=== PATIENT | female | born 1985 | race Caucasian/White ===

== ENCOUNTER 2016-11-05 15:21 | Emergency (ER) | payer MEDICARE, MEDICAID ==
[~2016-11-05 15:21] MED LIST: /METO5T; ACET65TA; LASI40TA; PRED20TA
[2016-11-05] MEDS ORDERED: MORPHINE 2 MG/ML 1ML SYRINGE As Ordered ONE (17:15)
[2016-11-05 17:23] LABS: BASO % 0.4 % (0.0-1.0); EOS # 0.2 K/mm3 (0.0-0.50); EOS % 1.8 % (0.0-3.0); LARGE UNSTAINED CELL # 0.1 K/mm3 (0.0-0.4); LARGE UNSTAINED CELL % 0.7 % (0.0-4.0); LYMPH # 1.5 K/mm3 (1.5-6.5); LYMPH % 15.9 % (24.0-44.0); MEAN CORPUSCULAR HEMOGLOBIN 29.8 pg (27.0-33.0); MEAN CORPUSCULAR HGB CONC 32.7 g/dl (32.0-36.5); MEAN CORPUSCULAR VOLUME 91.2 fl (80.0-96.0); MONO # 0.3 K/mm3 (0.0-0.8); MONO % 3.1 % (0.0-5.0); NEUTROPHILS # 7.2 K/mm3 (1.8-7.7); PLATELET COUNT, AUTOMATED 254 k/mm3 (150-450); RED CELL DISTRIBUTION WIDTH 14.2 % (11.5-14.5); WHITE BLOOD COUNT 9.2 K/mm3 (4.0-10.0)
[2016-11-05 17:40] LABS: ALBUMIN 3.8 GM/DL (3.2-5.2); ALBUMIN/GLOBULIN RATIO 1.03 (1.00-1.93); BILIRUBIN,DIRECT 0.2 MG/DL (0.0-0.2); BILIRUBIN,TOTAL 1.3 MG/DL (0.2-1.0); CALCIUM LEVEL 8.5 MG/DL (8.5-10.1); CREATININE FOR GFR 12.6 MG/DL (0.55-1.02); GLOMERULAR FILTRATION RATE 3.7 (>60); TOTAL PROTEIN 7.5 GM/DL (6.4-8.2)
--- NOTE | 2016-11-05 17:51 | REP ---
CT abdomen and pelvis without contrast 11/05/2016 Indication: Abdominal pain Comparison: CT abdomen and pelvis 11/28/07 Findings: Lung bases are clear bilaterally. Heart is of upper normal size. Heart is enlarged, 19.8 cm craniocaudal dimension, yet without focal lesions. The spleen is mildly enlarged 13.5 cm craniocaudal dimension. The pancreas is unremarkable. There has been a prior cholecystectomy. Adrenal glands are normal. The kidneys are diffusely atrophic contains few bilateral cortical calcifications which are nonobstructing. There is no hydronephrosis bilaterally. Stomach is contracted. Small bowel is without obstruction. The appendix is normal abdominal aorta is of normal course and caliber. Bladder is contracted. Uterus is anteflexed and somewhat deviated to the left. The right ovary measures 3.9 x 2.4 cm upper normal range. The left colon is under distended. The transplant kidney within the right iliac fossa does represent interval change when compared with CT of the pelvis 11/28/2007. There is diffusely hydronephrotic right transplant kidney with cortical thinning and large area of fluid attenuation within the renal sinus most compatible with a diffusely hydronephrotic kidney. There are no visualized obstructing ureteral calculi. There is no free air or ascites. Impression 1. 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 This does represent an interval finding when compared with CT pelvis 11/28/2007 at which time there was no transplant kidney. Clinical follow-up recommended. May consider ultrasound of the transplant kidney 2. Diffusely atrophic [place] kidneys with nonobstructing cortical and/or calyceal calcifications. Signed by Viv Obrien MD 11/05/2016 05:44 P
[2016-11-05] MEDS ORDERED: OXYCODONE/APAP 5MG/325MG(BULK) 1 TAB TAB As Ordered ONE (18:06)
--- NOTE | 2016-11-05 18:16 | EDDOCDS ---
Physician Documentation [facility] Name: Renee Ambrocio Age: 31 yrs Sex: Female : 1985 Arrival Date: 11/05/2016 Time: 15:21 Bed TR8 Private MD: NO PRIMARY PHYSICIAN, . Disposition: 11/05/16 18:05 Discharged to Home/Self Care. Impression: Abdominal and pelvic pain - RLQ, Nausea and vomiting. - Condition is Stable. - Discharge Instructions: Abdominal Pain, Adult, Nausea and Vomiting. - Prescriptions for ZOFRAN ODT 4 mg - dissolve 1 tablet by ORAL route 4 times per day As needed do not chew, do not swallow whole; 10 tablet. - Medication Reconciliation, Local Pharmacy Hours form. - Follow up: Emergency Department; When: As needed; Reason: Worsening of conditions. Follow up: [facility] Delga[facility]; When: Call to arrange an appointment; Reason: Wound/Symptom Recheck, Recheck today's complaints, Worsening of conditions, Continuance of care. - Problem is an ongoing problem. - Symptoms have improved. Historical: - Allergies: Pertussis Vaccines; - Home Meds: 1. carvedilol 25 mg oral tab 1 tab every 12 hours (Last dose: 11/05/2016 14:00) 2. Nifedical XL 60 mg oral tr24 1 tab twice a day (Last dose: 11/05/2016 14:00) 3. omeprazole 20 mg Oral cpDR 1 cap 2 times per day (Last dose: 11/05/2016 14:00) 4. Sensipar 60 mg oral tab 1 tab nightly (Last dose: 11/04/2016) 5. Vitamin D Oral 50,000 unit weekly (Last dose: 11/01/2016) - PMHx: Renal Failure with Dialysis; Hypertension; - PSHx: Kidney Transplant- Right; Cholecystectomy; Fistula placement; - Social history: Smoking status: Patient uses tobacco products, current every day smoker. No barriers to communication noted, The patient speaks fluent Czech, Speaks appropriately for age. - Family history: Not pertinent. - : The pt / caregiver states he / she is not on anticoagulants. Home medication list is obtained from pill bottles. - Exposure Risk Screening:: None identified. 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 6 in. (167.64 cm) (R); 16:24 BP 188 / 110 LA Sitting (man/reg); ct3 18:08 BP 180 / 104; Pulse 67; Resp 18; Temp 98.3(TE); Pulse Ox 99% on R/A; Pain 7/10; dem1 15:23 Body Mass Index 32.93 (92.53 kg, 167.64 cm) dd6 MDM: 16:53 Undress patient appropriately for examination ordered. cc10 16:53 Basic Metabolic Profile Ordered. EDMS 16:53 CBC with Diff Ordered. EDMS 16:53 Lipase Ordered. EDMS 16:53 Liver Profile Ordered. EDMS 16:54 morphine 2 mg IVP once ordered. cc10 16:54 CT ABD & PELVIS: No Contrast Ordered. EDMS 16:55 NOTHING BY MOUTH+DIET ordered. EDMS 16:57 IV Saline Lock ordered. cc10 17:46 Basic Metabolic Profile Reviewed. cc10 17:46 CBC with Diff Reviewed. cc10 17:46 Lipase Reviewed. cc10 17:46 Liver Profile Reviewed. cc10 17:47 Financial registration complete. zo 17:48 [facility] [place] was scanned into [employer] and attached to record. zo 18:04 oxyCODONE-acetaminophen 4 pack 5 mg-325 mg 1 packets PO once; Dispense with pt, take as cc10 per instruction on package ordered. Administered Medications: 17:18 Drug: morphine 2 mg [morphine 2 mg/mL intravenous cartridge (1 mL)] Route: IVP; Site: [facility] left hand; 18:09 Drug: oxyCODONE-acetaminophen 4 pack 1 packets [oxycodone-acetaminophen 5 mg-325 mg morenita tablet (1 tabs)] {Co-Signature: marianela (Price Desai RN).} Route: PO; Signatures: Dispatcher MedHost EDMS Louie Francis RN RN jmk Olin, Zoeann zo Dickerson, Laura, RN RN ld5 Price Desai RN RN jmb Coniski, Colin PA-C PA-C cc10 Price Desai RN jmb The chart was reviewed and I authenticate all verbal orders and agree with the evaluation and treatment provided.Attachments: 17:48 [facility] [place] Agreement zo MTDD
--- NOTE | 2016-11-05 18:16 | EDDOCDS ---
Nurse's Notes [facility] Name: Renee Ambrocio Age: 31 yrs Sex: Female : 1985 Arrival Date: 11/05/2016 Time: 15:21 Bed TR8 Private MD: NO PRIMARY PHYSICIAN, . Diagnosis: Abdominal and pelvic pain-RLQ;Nausea and vomiting Presentation: 11/05 15:38 Presenting complaint: Patient states: Pain to RLQ starting yesterday. + nausea, ld5 vomiting. History of right kidney transplant. Adult Sepsis Screening: The patient does not have new or worsening altered mentation. Patient's respiratory rate is less than 22. Systolic blood pressure is greater than 100. Patient has a qSOFA score of 0- Negative Sepsis Screen. Suicide/Homicide risk assessment- the patient denies having any suicidal and/or homicidal ideations and does not present with any other emotional, behavioral or mental health complaints. 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 Transition of care: patient was not received from another setting of care. 15:38 Acuity: JESUS Level 3 ld5 15:38 Method Of Arrival: Walkin/Carried/Asstd ld5 Triage Assessment: 15:42 General: Appears in no apparent distress. Pain: Location: right lower quadrant Pain ld5 currently is 8 out of 10 on a pain scale. Quality of pain is described as dull, Is continuous. HIV screening NA for this visit Offered previously. Neurological: Level of Consciousness is awake, alert. GI: Reports nausea, vomiting. : Reports does not produce urine. 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 carvedilol 25 mg oral tab 1 tab every 12 hours (Last dose: 11/05/2016 14:00) 2. Nifedical XL 60 mg oral tr24 1 tab twice a day (Last dose: 11/05/2016 14:00) 3. omeprazole 20 mg Oral cpDR 1 cap 2 times per day (Last dose: 11/05/2016 14:00) 4. Sensipar 60 mg oral tab 1 tab nightly (Last dose: 11/04/2016) 5. Vitamin D Oral 50,000 unit weekly (Last dose: 11/01/2016) - PMHx: Renal Failure with Dialysis; Hypertension; - PSHx: Kidney Transplant- Right; Cholecystectomy; Fistula placement; - Social history: Smoking status: Patient uses tobacco products, current every day smoker. No barriers to communication noted, The patient speaks fluent Tajik, Speaks appropriately for age. - Family history: Not pertinent. - : The pt / caregiver states he / she is not on anticoagulants. Home medication list is obtained from pill bottles. - Exposure Risk Screening:: None identified. Screenin:12 Screening information is obtained from the patient. Fall risk: No risks identified. jmb Assistance ADL's: requires no assistance with activities of daily living. Abuse/DV Screen: The patient / caregiver reports he/she is: not in a situation that causes fear, pain or injury. Nutritional screening: No deficits noted. home support is adequate. Assessment: 17:12 General: Appears in no apparent distress, Behavior is appropriate for age, cooperative. jmb Pain: Location: abdomen and right lower quadrant. Pain: Pain currently is 8 out of 10 on a pain scale. Neurological: Level of Consciousness is awake, alert, obeys commands, Oriented to person, place, time, Replenishment Merchandising Associate are equal bilaterally Speech is normal, Facial symmetry appears normal, Facial symmetry: tongue is midline. Cardiovascular: Capillary refill < 3 seconds Heart tones present Pulses are all present. Rhythm is regular. Respiratory: Airway is patent Respiratory effort is even, unlabored, Respiratory pattern is regular, symmetrical, Breath sounds are clear bilaterally. GI: Abdomen is non- distended Bowel sounds present X 4 quads. Abd is soft X 4 quads. Derm: Skin is pink, warm & dry. Musculoskeletal: Range of motion intact in all extremities. 17:48 General: Appears in no apparent distress, comfortable, Behavior is appropriate for age, jmb cooperative. Neurological: Level of Consciousness is awake, alert, obeys commands, Oriented to person, place, time, Speech is normal. Respiratory: Airway is patent Respiratory effort is even, unlabored, Respiratory pattern is regular, symmetrical. Vital Signs: 15:23 BP 231 / 155; Pulse 81; Resp 18 S; Temp 98.3(O); Pulse Ox 99% on R/A; Weight 92.53 kg dd6 (R); Height 5 ft. 6 in. (167.64 cm) (R); 16:24 BP 188 / 110 LA Sitting (man/reg); ct3 18:08 BP 180 / 104; Pulse 67; Resp 18; Temp 98.3(TE); Pulse Ox 99% on R/A; Pain 7/10; dem1 15:23 Body Mass Index 32.93 (92.53 kg, 167.64 cm) dd6 Vitals: 15:23 Log In Time: November 05, 2016 at 15:20. dd6 ED Course: 15:22 Patient visited by Alphonse Alcazar PCA. dd6 15:22 NO PRIMARY PHYSICIAN, . is Private Physician. dd6 15:22 Patient moved to Waiting dd6 15:24 Patient moved to Pre RCE dd6 15:39 Triage Initiated ld5 15:43 Patient visited by Angela Lerma,ALEXIA. ld5 16:18 Patient moved to I4 / M4 ct3 16:21 Patient moved to Triage 3 ld5 16:26 Patient visited by Erica Reese PCA. ct3 16:33 Patient moved to Pre RCE ct3 16:47 Patient moved to Triage 3 ct3 16:48 Floyd Navarrete PA-C is PHCP. cc10 16:48 Rg Ayala MD is Attending Physician. cc10 16:48 Patient visited by Floyd Navarrete PA-C. cc10 16:48 Patient visited by Floyd Navarrete PA-C. cc10 16:51 Patient moved to I4 / M4 ct3 17:12 The patient / caregiver is instructed regarding the plan of care and ED course. jmb 17:12 Basic Metabolic Profile Sent. jmb 17:12 CBC with Diff Sent. jmb 17:12 Lipase Sent. jmb 17:12 Liver Profile Sent. jmb 17:12 Inserted saline lock: 20 gauge in left hand and blood collected. The patient tolerated jmb the procedure well. Labs drawn. (by ED staff). Sent per order to lab. 17:14 Patient visited by Price Desai RN. jmb 17:48 [place] [place] into [employer] and attached to record. zo 17:49 Patient visited by Price Desai,ALEXIA. jmb 18:04 Chang Delgado is Referral Physician. cc10 18:09 Patient visited by Deandre Lauren. dem1 18:13 Discontinued lock intact, bleeding controlled, pressure dressing applied, No jmk redness/swelling at site. No procedures done that require assistance. 18:15 Patient moved to 8 [facility] Administered Medications: 17:18 Drug: morphine 2 mg [morphine 2 mg/mL intravenous cartridge (1 mL)] Route: IVP; Site: b left hand; 18:09 Drug: oxyCODONE-acetaminophen 4 pack 1 packets [oxycodone-acetaminophen 5 mg-325 mg jmk tablet (1 tabs)] {Co-Signature: marianela (Price Desia RN).} Route: PO; Order Results: Lab Order: Basic Metabolic Profile; SPEC'M 11/05/16 17:08 Test: GLUCOSE, FASTING; Value: 88; Range: 70-105; Units: MG/DL; Status: F Test: BLOOD UREA NITROGEN; Value: 43; Range: 7-18; Abnormal: Above high normal; Units: MG/DL; Status: F Test: CREATININE FOR GFR; Value: 12.60; Range: 0.55-1.02; Abnormal: Above high normal; Units: MG/DL; Status: F Test: GLOMERULAR FILTRATION RATE; Value: 3.7; Range: >60; Abnormal: Below low normal; Status: F Test: SODIUM LEVEL; Value: 143; Range: 136-145; Units: MEQ/L; Status: F Test: POTASSIUM SERUM; Value: 5.0; Range: 3.5-5.1; Units: MEQ/L; Status: F Test: CHLORIDE LEVEL; Value: 103; Range: 98-107; Units: MEQ/L; Status: F Test: CARBON DIOXIDE LEVEL; Value: 28; Range: 21-32; Units: MEQ/L; Status: F Test: ANION GAP; Value: 12; Range: 8-16; Units: MEQ/L; Status: F Test: CALCIUM LEVEL; Value: 8.5; Range: 8.5-10.1; Units: MG/DL; Status: F Test Note: ; Units are mL/min/1.73 m2 Chronic Kidney Disease Staging per NKF: Stage I & II GFR >=60 Normal to Mildly Decreased Stage III GFR 30-59 Moderately Decreased Stage IV GFR 15-29 Severely Decreased Stage V GFR <15 Very Little GFR Left ESRD GFR <15 on WINDOWS SERVER ADMINISTRATOR Lab Order: CBC with Diff; SPEC'M 11/05/16 17:08 Test: WHITE BLOOD COUNT; Value: 9.2; Range: 4.0-10.0; Units: K/mm3; Status: F Test: RED BLOOD COUNT; Value: 5.30; Range: 4.00-5.40; Units: M/mm3; Status: F Test: HEMOGLOBIN; Value: 15.8; Range: 12.0-16.0; Units: g/dl; Status: F Test: HEMATOCRIT; Value: 48.4; Range: 36.0-47.0; Abnormal: Above high normal; Units: %; Status: F Test: MEAN CORPUSCULAR VOLUME; Value: 91.2; Range: 80.0-96.0; Units: fl; Status: F Test: MEAN CORPUSCULAR HEMOGLOBIN; Value: 29.8; Range: 27.0-33.0; Units: pg; Status: F Test: MEAN CORPUSCULAR HGB CONC; Value: 32.7; Range: 32.0-36.5; Units: g/dl; Status: F Test: RED CELL DISTRIBUTION WIDTH; Value: 14.2; Range: 11.5-14.5; Units: %; Status: F Test: PLATELET COUNT, AUTOMATED; Value: 254; Range: 150-450; Units: k/mm3; Status: F Test: NEUTROPHILS %; Value: 78.0; Range: 36.0-66.0; Abnormal: Above high normal; Units: %; Status: F Test: LYMPH %; Value: 15.9; Range: 24.0-44.0; Abnormal: Below low normal; Units: %; Status: F Test: MONO %; Value: 3.1; Range: 0.0-5.0; Units: %; Status: F Test: EOS %; Value: 1.8; Range: 0.0-3.0; Units: %; Status: F Test: BASO %; Value: 0.4; Range: 0.0-1.0; Units: %; Status: F Test: LARGE UNSTAINED CELL %; Value: 0.7; Range: 0.0-4.0; Units: %; Status: F Test: NEUTROPHILS #; Value: 7.2; Range: 1.8-7.7; Units: K/mm3; Status: F Test: LYMPH #; Value: 1.5; Range: 1.5-6.5; Units: K/mm3; Status: F Test: MONO #; Value: 0.3; Range: 0.0-0.8; Units: K/mm3; Status: F Test: EOS #; Value: 0.2; Range: 0.0-0.50; Units: K/mm3; Status: F Test: BASO #; Value: 0.0; Range: 0.0-0.2; Units: K/mm3; Status: F Test: LARGE UNSTAINED CELL #; Value: 0.1; Range: 0.0-0.4; Units: K/mm3; Status: F Lab Order: Lipase; SPEC'M 11/05/16 17:08 Test: LIPASE; Value: 460; Range: 73-393; Abnormal: Above high normal; Units: U/L; Status: F Lab Order: Liver Profile; SPEC'M 11/05/16 17:08 Test: AST/SGOT; Value: 6; Range: 15-37; Abnormal: Below low normal; Units: U/L; Status: F Test: ALT/SGPT; Value: 12; Range: 12-78; Units: U/L; Status: F Test: ALKALINE PHOSPHATASE; Value: 153; Range: 45-117; Abnormal: Above high normal; Units: U/L; Status: F Test: BILIRUBIN,TOTAL; Value: 1.3; Range: 0.2-1.0; Abnormal: Above high normal; Units: MG/DL; Status: F Test: BILIRUBIN,DIRECT; Value: 0.2; Range: 0.0-0.2; Units: MG/DL; Status: F Test: TOTAL PROTEIN; Value: 7.5; Range: 6.4-8.2; Units: GM/DL; Status: F Test: ALBUMIN; Value: 3.8; Range: 3.2-5.2; Units: GM/DL; Status: F Test: ALBUMIN/GLOBULIN RATIO; Value: 1.03; Range: 1.00-1.93; Status: F Outcome: 18:05 Discharge ordered by Provider. cc10 18:13 Discharge Assessment: Patient awake, alert and oriented x 3. No cognitive and/or jmk functional deficits noted. Patient verbalized understanding of disposition instructions. patient administered narcotics - no. The following High Risk Discharge criteria are identified: None. Discharged to home ambulatory. Condition: good. Discharge instructions given to patient, Instructed on discharge instructions, follow up and referral plans. medication usage, Demonstrated understanding of instructions, medications, Pt was receptive of discharge instructions/ teaching. Prescriptions given X 1. No special radiology studies were completed. Property :Personal belongings accompany Pt. 18:15 Patient left the ED. morenita Signatures: Louie Francis,RN RN Gisel Steward Daniell, PARTS PICKER PARTS PICKER dd6 Angela Lerma RN RN ld5 Erica Reese, PARTS PICKER PARTS PICKER ct3 Deandre Lauren Joshua,RN RN Floyd Jamil, PA-C PA-C cc10 Price bear ALANISD
--- NOTE | 2016-11-07 19:17 | EDDOCDS ---
Physician Documentation [facility] Name: Renee Ambrocio Age: 31 yrs Sex: Female : 1985 Arrival Date: 11/05/2016 Time: 15:21 Bed TR8 Private MD: NO PRIMARY PHYSICIAN, . Disposition: 11/05/16 18:05 Discharged to Home/Self Care. Impression: Abdominal and pelvic pain - RLQ, Nausea and vomiting. - Condition is Stable. - Discharge Instructions: Abdominal Pain, Adult, Nausea and Vomiting. - Prescriptions for ZOFRAN ODT 4 mg - dissolve 1 tablet by ORAL route 4 times per day As needed do not chew, do not swallow whole; 10 tablet. - Medication Reconciliation, Local Pharmacy Hours form. - Follow up: Emergency Department; When: As needed; Reason: Worsening of conditions. Follow up: Chang Delgado; When: Call to arrange an appointment; Reason: Wound/Symptom Recheck, Recheck today's complaints, Worsening of conditions, Continuance of care. - Problem is an ongoing problem. - Symptoms have improved. Historical: - Allergies: Pertussis Vaccines; - Home Meds: 1. carvedilol 25 mg oral tab 1 tab every 12 hours (Last dose: 11/05/2016 14:00) 2. Nifedical XL 60 mg oral tr24 1 tab twice a day (Last dose: 11/05/2016 14:00) 3. omeprazole 20 mg Oral cpDR 1 cap 2 times per day (Last dose: 11/05/2016 14:00) 4. Sensipar 60 mg oral tab 1 tab nightly (Last dose: 11/04/2016) 5. Vitamin D Oral 50,000 unit weekly (Last dose: 11/01/2016) - PMHx: Renal Failure with Dialysis; Hypertension; - PSHx: Kidney Transplant- Right; Cholecystectomy; Fistula placement; - Social history: Smoking status: Patient uses tobacco products, current every day smoker. No barriers to communication noted, The patient speaks fluent Slovak, Speaks appropriately for age. - Family history: Not pertinent. - : The pt / caregiver states he / she is not on anticoagulants. Home medication list is obtained from pill bottles. - Exposure Risk Screening:: None identified. 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 6 in. (167.64 cm) (R); 16:24 BP 188 / 110 LA Sitting (man/reg); ct3 18:08 BP 180 / 104; Pulse 67; Resp 18; Temp 98.3(TE); Pulse Ox 99% on R/A; Pain 7/10; dem1 15:23 Body Mass Index 32.93 (92.53 kg, 167.64 cm) dd6 MDM: 16:53 Undress patient appropriately for examination ordered. cc10 16:53 Basic Metabolic Profile Ordered. EDMS 16:53 CBC with Diff Ordered. EDMS 16:53 Lipase Ordered. EDMS 16:53 Liver Profile Ordered. EDMS 16:54 morphine 2 mg IVP once ordered. cc10 16:54 CT ABD & PELVIS: No Contrast Ordered. EDMS 16:55 NOTHING BY MOUTH+DIET ordered. EDMS 16:57 IV Saline Lock ordered. cc10 17:46 Basic Metabolic Profile Reviewed. cc10 17:46 CBC with Diff Reviewed. cc10 17:46 Lipase Reviewed. cc10 17:46 Liver Profile Reviewed. cc10 17:47 Financial registration complete. zo 17:48 [facility] [place] was scanned into [employer] and attached to record. zo 18:04 oxyCODONE-acetaminophen 4 pack 5 mg-325 mg 1 packets PO once; Dispense with pt, take as cc10 per instruction on package ordered. 11/06 10:04 T-Sheet-- Draft Copy was scanned into [employer] and attached to record. gb Administered Medications: 11/05 17:18 Drug: morphine 2 mg [morphine 2 mg/mL intravenous cartridge (1 mL)] Route: IVP; Site: b left hand; 18:09 Drug: oxyCODONE-acetaminophen 4 pack 1 packets [oxycodone-acetaminophen 5 mg-325 mg morenita tablet (1 tabs)] {Co-Signature: marianela (Price Desai RN).} Route: PO; Signatures: Dispatcher MedHost EDMS Louie Francis,RN RN Karlee Coelho, Reg Reg gb Gisel Pressley Laura,RN RN ld5 Price Desai RN RN jmb Floyd Navarrete PA-C PAJohnnaC cc10 Price Desai RN judyb The chart was reviewed and I authenticate all verbal orders and agree with the evaluation and treatment provided.Attachments: 17:48 [facility] Payment Agreement zo 11/06 10:04 T-Sheet-- Draft Copy gb Chart Complete MTDD
--- NOTE | 2016-11-07 19:17 | EDDOCDS ---
Physician Documentation [facility] Name: Renee Ambrocio Age: 31 yrs Sex: Female : 1985 Arrival Date: 11/05/2016 Time: 15:21 Bed TR8 Private MD: NO PRIMARY PHYSICIAN, . Disposition: 11/05/16 18:05 Discharged to Home/Self Care. Impression: Abdominal and pelvic pain - RLQ, Nausea and vomiting. - Condition is Stable. - Discharge Instructions: Abdominal Pain, Adult, Nausea and Vomiting. - Prescriptions for ZOFRAN ODT 4 mg - dissolve 1 tablet by ORAL route 4 times per day As needed do not chew, do not swallow whole; 10 tablet. - Medication Reconciliation, Local Pharmacy Hours form. - Follow up: Emergency Department; When: As needed; Reason: Worsening of conditions. Follow up: Chang Delgado; When: Call to arrange an appointment; Reason: Wound/Symptom Recheck, Recheck today's complaints, Worsening of conditions, Continuance of care. - Problem is an ongoing problem. - Symptoms have improved. Historical: - Allergies: Pertussis Vaccines; - Home Meds: 1. carvedilol 25 mg oral tab 1 tab every 12 hours (Last dose: 11/05/2016 14:00) 2. Nifedical XL 60 mg oral tr24 1 tab twice a day (Last dose: 11/05/2016 14:00) 3. omeprazole 20 mg Oral cpDR 1 cap 2 times per day (Last dose: 11/05/2016 14:00) 4. Sensipar 60 mg oral tab 1 tab nightly (Last dose: 11/04/2016) 5. Vitamin D Oral 50,000 unit weekly (Last dose: 11/01/2016) - PMHx: Renal Failure with Dialysis; Hypertension; - PSHx: Kidney Transplant- Right; Cholecystectomy; Fistula placement; - Social history: Smoking status: Patient uses tobacco products, current every day smoker. No barriers to communication noted, The patient speaks fluent [place], Speaks appropriately for age. - Family history: Not pertinent. - : The pt / caregiver states he / she is not on anticoagulants. Home medication list is obtained from pill bottles. - Exposure Risk Screening:: None identified. 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 6 in. (167.64 cm) (R); 16:24 BP 188 / 110 LA Sitting (man/reg); ct3 18:08 BP 180 / 104; Pulse 67; Resp 18; Temp 98.3(TE); Pulse Ox 99% on R/A; Pain 7/10; dem1 15:23 Body Mass Index 32.93 (92.53 kg, 167.64 cm) dd6 MDM: 16:53 Undress patient appropriately for examination ordered. cc10 16:53 Basic Metabolic Profile Ordered. EDMS 16:53 CBC with Diff Ordered. EDMS 16:53 Lipase Ordered. EDMS 16:53 Liver Profile Ordered. EDMS 16:54 morphine 2 mg IVP once ordered. cc10 16:54 CT ABD & PELVIS: No Contrast Ordered. EDMS 16:55 NOTHING BY MOUTH+DIET ordered. EDMS 16:57 IV Saline Lock ordered. cc10 17:46 Basic Metabolic Profile Reviewed. cc10 17:46 CBC with Diff Reviewed. cc10 17:46 Lipase Reviewed. cc10 17:46 Liver Profile Reviewed. cc10 17:47 Financial registration complete. zo 17:48 [facility] [place] Agreement was scanned into [employer] and attached to record. zo 18:04 oxyCODONE-acetaminophen 4 pack 5 mg-325 mg 1 packets PO once; Dispense with pt, take as cc10 per instruction on package ordered. 11/06 10:04 T-Sheet-- Draft Copy was scanned into [employer] and attached to record. gb Administered Medications: 11/05 17:18 Drug: morphine 2 mg [morphine 2 mg/mL intravenous cartridge (1 mL)] Route: IVP; Site: b left hand; 18:09 Drug: oxyCODONE-acetaminophen 4 pack 1 packets [oxycodone-acetaminophen 5 mg-325 mg morenita tablet (1 tabs)] {Co-Signature: marianela (Price Desai RN).} Route: PO; Signatures: Dispatcher [employer] EDMS Louie Francis,RN RN Karlee Coelho, Reg Reg gb Gisel Pressley Laura,RN RN ld5 Price Desai RN RN jmb Floyd Navarrete PA-C PAJohnnaC cc10 Price Desai RN judyb The chart was reviewed and I authenticate all verbal orders and agree with the evaluation and treatment provided.Attachments: 17:48 [facility] Payment Agreement zo 11/06 10:04 T-Sheet-- Draft Copy gb Chart Complete MTDD
--- NOTE | 2016-11-07 19:17 | EDDOCDS ---
Nurse's Notes [facility] Name: Renee Ambrocio Age: 31 yrs Sex: Female : 1985 Arrival Date: 11/05/2016 Time: 15:21 Bed TR8 Private MD: NO PRIMARY PHYSICIAN, . Diagnosis: Abdominal and pelvic pain-RLQ;Nausea and vomiting Presentation: 11/05 15:38 Presenting complaint: Patient states: Pain to RLQ starting yesterday. + nausea, ld5 vomiting. History of right kidney transplant. Adult Sepsis Screening: The patient does not have new or worsening altered mentation. Patient's respiratory rate is less than 22. Systolic blood pressure is greater than 100. Patient has a qSOFA score of 0- Negative Sepsis Screen. Suicide/Homicide risk assessment- the patient denies having any suicidal and/or homicidal ideations and does not present with any other emotional, behavioral or mental health complaints. Status: Patient is not a client service professional or dependent. Transition of care: patient was not received from another setting of care. 15:38 Acuity: JESUS Level 3 ld5 15:38 Method Of Arrival: Walkin/Carried/Asstd ld5 Triage Assessment: 15:42 General: Appears in no apparent distress. Pain: Location: right lower quadrant Pain ld5 currently is 8 out of 10 on a pain scale. Quality of pain is described as dull, Is continuous. HIV screening NA for this visit Offered previously. Neurological: Level of Consciousness is awake, alert. GI: Reports nausea, vomiting. : Reports does not produce urine. CONTINUOUS IMPROVEMENT COORDINATOR: 15:42 LMP 09/28/2016 ld5 Historical: - Allergies: Pertussis Vaccines; - Home Meds: 1. carvedilol 25 mg oral tab 1 tab every 12 hours (Last dose: 11/05/2016 14:00) 2. Nifedical XL 60 mg oral tr24 1 tab twice a day (Last dose: 11/05/2016 14:00) 3. omeprazole 20 mg Oral cpDR 1 cap 2 times per day (Last dose: 11/05/2016 14:00) 4. Sensipar 60 mg oral tab 1 tab nightly (Last dose: 11/04/2016) 5. Vitamin D Oral 50,000 unit weekly (Last dose: 11/01/2016) - PMHx: Renal Failure with Dialysis; Hypertension; - PSHx: Kidney Transplant- Right; Cholecystectomy; Fistula placement; - Social history: Smoking status: Patient uses tobacco products, current every day smoker. No barriers to communication noted, The patient speaks fluent Swedish, Speaks appropriately for age. - Family history: Not pertinent. - : The pt / caregiver states he / she is not on anticoagulants. Home medication list is obtained from pill bottles. - Exposure Risk Screening:: None identified. Screenin:12 Screening information is obtained from the patient. Fall risk: No risks identified. jmb Assistance ADL's: requires no assistance with activities of daily living. Abuse/DV Screen: The patient / caregiver reports he/she is: not in a situation that causes fear, pain or injury. Nutritional screening: No deficits noted. home support is adequate. Assessment: 17:12 General: Appears in no apparent distress, Behavior is appropriate for age, cooperative. jmb Pain: Location: abdomen and right lower quadrant. Pain: Pain currently is 8 out of 10 on a pain scale. Neurological: Level of Consciousness is awake, alert, obeys commands, Oriented to person, place, time, Head Rigger are equal bilaterally Speech is normal, Facial symmetry appears normal, Facial symmetry: tongue is midline. Cardiovascular: Capillary refill < 3 seconds Heart tones present Pulses are all present. Rhythm is regular. Respiratory: Airway is patent Respiratory effort is even, unlabored, Respiratory pattern is regular, symmetrical, Breath sounds are clear bilaterally. GI: Abdomen is non- distended Bowel sounds present X 4 quads. Abd is soft X 4 quads. Derm: Skin is pink, warm & dry. Musculoskeletal: Range of motion intact in all extremities. 17:48 General: Appears in no apparent distress, comfortable, Behavior is appropriate for age, jmb cooperative. Neurological: Level of Consciousness is awake, alert, obeys commands, Oriented to person, place, time, Speech is normal. Respiratory: Airway is patent Respiratory effort is even, unlabored, Respiratory pattern is regular, symmetrical. Vital Signs: 15:23 BP 231 / 155; Pulse 81; Resp 18 S; Temp 98.3(O); Pulse Ox 99% on R/A; Weight 92.53 kg dd6 (R); Height 5 ft. 6 in. (167.64 cm) (R); 16:24 BP 188 / 110 LA Sitting (man/reg); ct3 18:08 BP 180 / 104; Pulse 67; Resp 18; Temp 98.3(TE); Pulse Ox 99% on R/A; Pain 7/10; dem1 15:23 Body Mass Index 32.93 (92.53 kg, 167.64 cm) dd6 Vitals: 15:23 Log In Time: November 05, 2016 at 15:20. dd6 ED Course: 15:22 Patient visited by Alphonse Alcazar PCA. dd6 15:22 NO PRIMARY PHYSICIAN, . is Private Physician. dd6 15:22 Patient moved to Waiting dd6 15:24 Patient moved to Pre RCE dd6 15:39 Triage Initiated ld5 15:43 Patient visited by Angela Lerma,ALEXIA. ld5 16:18 Patient moved to I4 / M4 ct3 16:21 Patient moved to Triage 3 ld5 16:26 Patient visited by Erica Reese PCA. ct3 16:33 Patient moved to Pre RCE ct3 16:47 Patient moved to Triage 3 ct3 16:48 Floyd Navarrete PA-C is PHCP. cc10 16:48 Rg Ayala MD is Attending Physician. cc10 16:48 Patient visited by Floyd Navarrete PA-C. cc10 16:48 Patient visited by Floyd Navarrete PA-C. cc10 16:51 Patient moved to I4 / M4 ct3 17:12 The patient / caregiver is instructed regarding the plan of care and ED course. jmb 17:12 Basic Metabolic Profile Sent. jmb 17:12 CBC with Diff Sent. jmb 17:12 Lipase Sent. jmb 17:12 Liver Profile Sent. jmb 17:12 Inserted saline lock: 20 gauge in left hand and blood collected. The patient tolerated jmb the procedure well. Labs drawn. (by ED staff). Sent per order to lab. 17:14 Patient visited by Price Desai RN. jmb 17:48 [facility] [place] was [place] into [employer] and attached to record. zo 17:49 Patient visited by Price Desai,ALEXIA. jmb 18:04 Chang Delgado is Referral Physician. cc10 18:09 Patient visited by Deandre Lauren. dem1 18:13 Discontinued lock intact, bleeding controlled, pressure dressing applied, No jmk redness/swelling at site. No procedures done that require assistance. 18:15 Patient moved to TR8 dem1 18:21 CT ABD & PELVIS: No Contrast Returned. EDMS 11/06 10:04 T-Sheet-- Draft Copy was scanned into [employer] and attached to record. gb Administered Medications: 11/05 17:18 Drug: morphine 2 mg [morphine 2 mg/mL intravenous cartridge (1 mL)] Route: IVP; Site: [facility] left hand; 18:09 Drug: oxyCODONE-acetaminophen 4 pack 1 packets [oxycodone-acetaminophen 5 mg-325 mg jmk tablet (1 tabs)] {Co-Signature: tyler (Price Desai RN).} Route: PO; Order Results: Lab Order: Basic Metabolic Profile; SPEC'M 11/05/16 17:08 Test: GLUCOSE, FASTING; Value: 88; Range: 70-105; Units: MG/DL; Status: F Test: BLOOD UREA NITROGEN; Value: 43; Range: 7-18; Abnormal: Above high normal; Units: MG/DL; Status: F Test: CREATININE FOR GFR; Value: 12.60; Range: 0.55-1.02; Abnormal: Above high normal; Units: MG/DL; Status: F Test: GLOMERULAR FILTRATION RATE; Value: 3.7; Range: >60; Abnormal: Below low normal; Status: F Test: SODIUM LEVEL; Value: 143; Range: 136-145; Units: MEQ/L; Status: F Test: POTASSIUM SERUM; Value: 5.0; Range: 3.5-5.1; Units: MEQ/L; Status: F Test: CHLORIDE LEVEL; Value: 103; Range: 98-107; Units: MEQ/L; Status: F Test: CARBON DIOXIDE LEVEL; Value: 28; Range: 21-32; Units: MEQ/L; Status: F Test: ANION GAP; Value: 12; Range: 8-16; Units: MEQ/L; Status: F Test: CALCIUM LEVEL; Value: 8.5; Range: 8.5-10.1; Units: MG/DL; Status: F Test Note: ; Units are mL/min/1.73 m2 Chronic Kidney Disease Staging per NKF: Stage I & II GFR >=60 Normal to Mildly Decreased Stage III GFR 30-59 Moderately Decreased Stage IV GFR 15-29 Severely Decreased Stage V GFR <15 Very Little GFR Left ESRD GFR <15 on BIOLOGICAL CHEMIST Lab Order: CBC with Diff; SPEC'M 11/05/16 17:08 Test: WHITE BLOOD COUNT; Value: 9.2; Range: 4.0-10.0; Units: K/mm3; Status: F Test: RED BLOOD COUNT; Value: 5.30; Range: 4.00-5.40; Units: M/mm3; Status: F Test: HEMOGLOBIN; Value: 15.8; Range: 12.0-16.0; Units: g/dl; Status: F Test: HEMATOCRIT; Value: 48.4; Range: 36.0-47.0; Abnormal: Above high normal; Units: %; Status: F Test: MEAN CORPUSCULAR VOLUME; Value: 91.2; Range: 80.0-96.0; Units: fl; Status: F Test: MEAN CORPUSCULAR HEMOGLOBIN; Value: 29.8; Range: 27.0-33.0; Units: pg; Status: F Test: MEAN CORPUSCULAR HGB CONC; Value: 32.7; Range: 32.0-36.5; Units: g/dl; Status: F Test: RED CELL DISTRIBUTION WIDTH; Value: 14.2; Range: 11.5-14.5; Units: %; Status: F Test: PLATELET COUNT, AUTOMATED; Value: 254; Range: 150-450; Units: k/mm3; Status: F Test: NEUTROPHILS %; Value: 78.0; Range: 36.0-66.0; Abnormal: Above high normal; Units: %; Status: F Test: LYMPH %; Value: 15.9; Range: 24.0-44.0; Abnormal: Below low normal; Units: %; Status: F Test: MONO %; Value: 3.1; Range: 0.0-5.0; Units: %; Status: F Test: EOS %; Value: 1.8; Range: 0.0-3.0; Units: %; Status: F Test: BASO %; Value: 0.4; Range: 0.0-1.0; Units: %; Status: F Test: LARGE UNSTAINED CELL %; Value: 0.7; Range: 0.0-4.0; Units: %; Status: F Test: NEUTROPHILS #; Value: 7.2; Range: 1.8-7.7; Units: K/mm3; Status: F Test: LYMPH #; Value: 1.5; Range: 1.5-6.5; Units: K/mm3; Status: F Test: MONO #; Value: 0.3; Range: 0.0-0.8; Units: K/mm3; Status: F Test: EOS #; Value: 0.2; Range: 0.0-0.50; Units: K/mm3; Status: F Test: BASO #; Value: 0.0; Range: 0.0-0.2; Units: K/mm3; Status: F Test: LARGE UNSTAINED CELL #; Value: 0.1; Range: 0.0-0.4; Units: K/mm3; Status: F Lab Order: Lipase; SPEC'M 11/05/16 17:08 Test: LIPASE; Value: 460; Range: 73-393; Abnormal: Above high normal; Units: U/L; Status: F Lab Order: Liver Profile; SPEC'M 11/05/16 17:08 Test: AST/SGOT; Value: 6; Range: 15-37; Abnormal: Below low normal; Units: U/L; Status: F Test: ALT/SGPT; Value: 12; Range: 12-78; Units: U/L; Status: F Test: ALKALINE PHOSPHATASE; Value: 153; Range: 45-117; Abnormal: Above high normal; Units: U/L; Status: F Test: BILIRUBIN,TOTAL; Value: 1.3; Range: 0.2-1.0; Abnormal: Above high normal; Units: MG/DL; Status: F Test: BILIRUBIN,DIRECT; Value: 0.2; Range: 0.0-0.2; Units: MG/DL; Status: F Test: TOTAL PROTEIN; Value: 7.5; Range: 6.4-8.2; Units: GM/DL; Status: F Test: ALBUMIN; Value: 3.8; Range: 3.2-5.2; Units: GM/DL; Status: F Test: ALBUMIN/GLOBULIN RATIO; Value: 1.03; Range: 1.00-1.93; Status: F Radiology Order: CT ABD & PELVIS: No Contrast Test: CT ABD & PELVIS: No Contrast REASON FOR EXAMINATION: Abdomen Pain; CT abdomen and pelvis without contrast 11/05/2016; ; Indication: Abdominal pain; ; Comparison: CT abdomen and pelvis 11/28/07; ; Findings: Lung bases are clear bilaterally. Heart is of upper normal size.; ; Heart is enlarged, 19.8 cm craniocaudal dimension, yet without focal lesions.; The spleen is mildly enlarged 13.5 cm craniocaudal dimension. The pancreas is; unremarkable. There has been a prior cholecystectomy. Adrenal glands are; normal. The kidneys are diffusely atrophic contains few bilateral cortical; calcifications which are nonobstructing. There is no hydronephrosis bilaterally.; Stomach is contracted. Small bowel is without obstruction. The appendix is; normal abdominal aorta is of normal course and caliber.; ; Bladder is contracted. Uterus is anteflexed and somewhat deviated to the left.; The right ovary measures 3.9 x 2.4 cm upper normal range. The left colon is; under distended.; ; The transplant kidney within the right iliac fossa does represent interval change; when compared with CT of the pelvis 11/28/2007. There is diffusely hydronephrotic; right transplant kidney with cortical thinning and large area of fluid; attenuation within the renal sinus most compatible with a diffusely; hydronephrotic kidney. There are no visualized obstructing ureteral calculi.; There is no free air or ascites.; ; Impression; 1. Diffusely hydronephrotic transplant kidney within the right iliac fossa with; significant renal cortical thinning. This does represent an interval finding; when compared with CT pelvis 11/28/2007 at which time there was no transplant; kidney. Clinical follow-up recommended. May consider ultrasound of the; transplant kidney; 2. Diffusely atrophic [place] kidneys with nonobstructing cortical and/or; calyceal calcifications.; ; ; ; ; Signed by; Viv Obrien MD 11/05/2016 05:44 P; Outcome: 18:05 Discharge ordered by Provider. cc10 18:13 Discharge Assessment: Patient awake, alert and oriented x 3. No cognitive and/or jmk functional deficits noted. Patient verbalized understanding of disposition instructions. patient administered narcotics - no. The following High Risk Discharge criteria are identified: None. Discharged to home ambulatory. Condition: good. Discharge instructions given to patient, Instructed on discharge instructions, follow up and referral plans. medication usage, Demonstrated understanding of instructions, medications, Pt was receptive of discharge instructions/ teaching. Prescriptions given X 1. No special radiology studies were completed. Property :Personal belongings accompany Pt. 18:15 Patient left the ED. morenita Signatures: Dispatcher [employer] EDMS Louie Francis,RN RN Karlee Coelho, Reg Reg gb Huan, Alphonse [place], REAL ESTATE ASSISTANT REAL ESTATE ASSISTANT dd6 Angela Lerma,RN RN ld5 Erica Reese, REAL ESTATE ASSISTANT REAL ESTATE ASSISTANT ct3 Deandre Lauren1 Price Desai,RN RN Floyd Jamil PA-C PA-C cc10 Price bear Chart Complete MTDD
== END 2016-11-05 18:15 | disposition home or self-care (01) ==
LOC: M ED 15:21
DX: R10.31 Right lower quadrant pain (principal); R11.2 Nausea with vomiting, unspecified; I10 Essential (primary) hypertension; N19 Unspecified kidney failure; K21.9 Gastro-esophageal reflux disease without esophagitis; F17.210 Nicotine dependence, cigarettes, uncomplicated; Z99.2 Dependence on renal dialysis; Z79.899 Other long term (current) drug therapy; Z88.7 Allergy status to serum and vaccine; Z94.0 Kidney transplant status

== ENCOUNTER 2017-01-28 19:58 | Emergency (ER) | payer MEDICARE, MEDICAID ==
[~2017-01-28] VITALS: Ht 167.6 cm; Wt 90.7 kg
[2017-01-28] MEDS ORDERED: TYLE325T5 PO (20:33)
[2017-01-28] MEDS ORDERED: VALS1TAB48 PO (20:33)
[2017-01-28] MEDS ORDERED: DRIS50002 PO (20:33)
[2017-01-28] MEDS ORDERED: RENV2TAB PO (20:33)
[2017-01-28] MEDS ORDERED: NEPHTAB PO (20:33)
[2017-01-28] MEDS ORDERED: HYDR-3713 PO (20:33)
[2017-01-28] MEDS ORDERED: SENS90TA PO (20:33)
[2017-01-28] MEDS ORDERED: OMEP20CA3 PO (20:33)
[2017-01-28] MEDS ORDERED: PRED5TA PO (20:33)
[2017-01-28] MEDS ORDERED: [UNRECOGNIZED DRUG - REMARK] (20:33)
[2017-01-28] MEDS ORDERED: CORE25TA PO (20:33)
[2017-01-28] MEDS ORDERED: ZOFR20TA PO (20:33)
[2017-01-28] MEDS ORDERED: CALC1CAP PO (20:33)
[2017-01-28] MEDS ORDERED: ACETAMINOPHEN TAB 650MG DOSE (2X325MG) PO ONE (21:00)
[2017-01-28 21:12] LABS: BASO % 0.4 % (0.0-1.0); LARGE UNSTAINED CELL % 0.5 % (0.0-4.0); LYMPH # 0.5 K/mm3 (1.5-6.5); LYMPH % 10.8 % (24.0-44.0); MEAN CORPUSCULAR HEMOGLOBIN 29.9 pg (27.0-33.0); MEAN CORPUSCULAR HGB CONC 31.7 g/dl (32.0-36.5); MEAN CORPUSCULAR VOLUME 94.3 fl (80.0-96.0); MONO # 0.2 K/mm3 (0.0-0.8); MONO % 4.2 % (0.0-5.0); NEUTROPHILS # 3.6 K/mm3 (1.8-7.7); PLATELET COUNT, AUTOMATED 130 k/mm3 (150-450); RED CELL DISTRIBUTION WIDTH 13.3 % (11.5-14.5); WHITE BLOOD COUNT 4.3 K/mm3 (4.0-10.0)
[2017-01-28] MEDS ORDERED: AMPICILLIN SOD/SULBACTAM SOD 1.5 GM in D5W MINI-BAG PLUS 50 ML IV ONE (23:45)
[2017-01-29 00:26] VITALS: BP 195/100
[2017-01-29 00:38] LABS: CALCIUM LEVEL 7.5 MG/DL (8.5-10.1); CREATININE FOR GFR 5.56 MG/DL (0.55-1.02); GLOMERULAR FILTRATION RATE 9.6 (>60); POTASSIUM SERUM 3.2 MEQ/L (3.5-5.1)
--- NOTE | 2017-01-29 08:26 | REP ---
REASON: Pyrexia. COMPARISON: None. FINDINGS: The superior mediastinal structures are midline. The cardiac silhouette is unremarkable in size, shape, and position. The diaphragmatic surfaces of the lungs are regular, and the costophrenic angles are clear. The pulmonary castillo are clear. The imaged osseous structures are intact. IMPRESSION: There is no acute cardiopulmonary disease. Signed by Oliver Nascimento DO 01/29/2017 08:49 A
== END 2017-01-29 00:56 | disposition home or self-care (01) ==
LOC: EDBD 19:58 → M ED 21:37
DX: R50.9 Fever, unspecified (principal); N18.6 End stage renal disease; I12.0 Hypertensive chronic kidney disease with stage 5 chronic kidney disease or end stage renal disease; K21.9 Gastro-esophageal reflux disease without esophagitis; Z94.0 Kidney transplant status; T86.12 Kidney transplant failure; Y83.0 Surgical operation with transplant of whole organ as the cause of abnormal reaction of the patient, or of later complication, without mention of misadventure at the time of the procedure; Z99.2 Dependence on renal dialysis; F17.200 Nicotine dependence, unspecified, uncomplicated; Z88.8 Allergy status to other drugs, medicaments and biological substances; Z79.899 Other long term (current) drug therapy; Z79.52 Long term (current) use of systemic steroids